=== PATIENT | female | born 1960 | race Caucasian/White ===

== ENCOUNTER → 2017-07-30 | Outpatient (CLI) | payer MEDICARE ==
[~2017-07-30] MED LIST: ASPIRIN (CHILDR81 MG PO; COLACE100 MG PO; DILAUDID 2MG(HYD2 MG PO; HUMALOG KW200 UNIT/1 SUB-Q; HUMALOG100 UNIT/1 SUB-Q; INVOKANA100 MG PO; JANUMET XR 50-1 EACH PO; LANTUS (IN100 UNIT/M SUB-Q; LISINOPRIL-HCT1 EACH PO; MIRALAX17 GM PO; TYLENOL EXTRA500 MG PO; TYLENOL SINUS PO; VALIUM5 MG PO; XARELTO10 MG PO; ZITHROMAX250 MG PO; ZYLOPRIM300 MG PO
== END ==
LOC: LKESC 15:46
DX: D23.12 Other benign neoplasm of skin of left eyelid, including canthus (principal)